=== PATIENT | male | born 1950 | race Caucasian/White ===

== ENCOUNTER 2017-01-03 06:40 | Day surgery (SDC) | payer OTHER ==
[~2017-01-03] VITALS: Ht 190.5 cm; Wt 142.9 kg
[~2017-01-03 06:40] MED LIST: ACTOS45 MG PO; ADVAIR DISK1 INH; ASPIRIN ADULT L81 MG PO; ATENOLOL25 MG PO; AVODART0.5 MG PO; CELEXA20 MG PO; COREG12.5 MG PO; COUMADIN5 MG PO; CYCLOBENZAPR10 MG PO; DICLOFENAC SODIUM1 %; DIGOXIN0.25 MG PO; DILTIAZEM120 M1 PO; DOCUSATE SOD100 M2 PO; ENALAPRIL20 MG PO; FISH OIL1000 MG PO; FLOMAX0.4 M1 PO; FLOVENT HF110 MCG/AC; FUROSEMIDE40 MG PO; GLIPIZIDE ER10 M1 PO; GLIPIZIDE5 MG PO; HUMULIN R1 M1 SC; HYDROCODONE/ACE1 TAB PO; KLOR-CON20 MEQ PO; LANTUS100 MG/ML SC; LASIX 40 MG TAB40 MG PO; LIPITOR20 M1 PO; MAG-OXIDE400 MG PO; MELOXICAM15 MG PO; METFORMIN500 M1 PO; METOPROL TAR25 M1 PO; NASONEX50 MCG/AC NAB; NEURONTIN600 MG PO; OXYBUTYNIN5 M1 PO; OXYCOD/APAP1 TA4 PO; PERCOCET 10/31 COMBO PO; PERCOCET 5/325M1 TAB PO; PROAIR HFA IN; PROSCAR5 MG PO; PROTONIX40 M2 PO; REMERON30 MG PO; RESTORIL15 M1 PO; RESTORIL15 MG PO; SPIRONOLACTONE25 MG PO; SYNTHROID25 MCG PO; TAMSULOSIN0.4 MG PO; TEMAZEPAM30 MG PO; TIMOLOL 0.25%5 ML OU; ULTRAM50 M1 PO; ULTRAM50 MG PO; VENLAFAXINE75 M2 PO; VITAMIN B-121000 MCG PO; VOLTAREN-XR100 MG TOP; XANAX0.25 MG PO; XANAX0.5 MG PO; ZANAFLEX4 M2 PO; ZESTRIL5 M1 PO; ZPAK PO
[2017-01-03] MEDS ORDERED: OXYCOD/APAP1 TA4 PO (07:41)
[2017-01-03 09:00] VITALS: BP 105/54
== END 2017-01-03 08:55 | disposition home or self-care (01) | DRG 552 ==
LOC: ORM 06:40
PROVIDERS: ATTEND Anesthesiology Pain Medicine
PROC: 3E0T3TZ Introduction of Destructive Agent into Peripheral Nerves and Plexi, Percutaneous Approach (ICD-10-PCS; principal; 2017-01-03)
DX: M54.5 Low back pain (principal)

== ENCOUNTER 2020-06-09 07:10 | Day surgery (SDC) | payer MEDICARE, MEDICAID ==
[~2020-06-09] VITALS: Ht 190.5 cm; Wt 147.4 kg
[~2020-06-09 07:10] MED LIST changes: +ALLERGY RELF10 M3 PO; +BASAGLAR K100 UNIT/M; +BUPROPION HCL300 MG PO; +COLACE100 MG PO; +DIGITEK0.25 M1; +FENTANYL50 MCG/HR TD; +FLEXERIL PO; +FLUOXETINE40 MG PO; +LANTUS100 UNIT/M; +LYRICA200 MG PO; +MEDDOSEPAK PO; +METAMUCIL48.57 % PO; +PATADAY0.2 %; +PLAVIX75 MG PO; +POLYETH GLYC3350 NF PO; +TOPIRAMATE ER25 MG; +VICTOZA18 MG/3 ML SC; +VOLTAREN1%GEL TOP
[2020-06-09] MEDS ORDERED: PERCOCET 10/31 COMBO PO (08:10)
[2020-06-09] MEDS ORDERED: LYRICA200 MG PO (08:12)
[2020-06-09] MEDS ORDERED: ELIQUIS2.5 MG (08:59)
[2020-06-09 12:38] VITALS: BP 118/69
== END 2020-06-09 10:00 | disposition home or self-care (01) ==
LOC: ORM 07:10
PROVIDERS: ATTEND Anesthesiology Pain Medicine
DX: M17.11 Unilateral primary osteoarthritis, right knee (principal); M17.12 Unilateral primary osteoarthritis, left knee; Z01.84 Encounter for antibody response examination